=== PATIENT | female | born 1970 | race Hispanic/Latino ===

== ENCOUNTER 2020-05-21 01:22 | Emergency (ER) | payer OTHER ==
[2020-05-21] MEDS ORDERED: CLINDAMYCIN HCL 150 MG CAP ONE (02:11)
[2020-05-21] MEDS ORDERED: KETOROLAC TROMETHAMINE 30MG/ML ONE (02:12)
== END 2020-05-21 02:55 ==
LOC: EDH 01:22
DX: L03.012 Cellulitis of left finger (principal); I10 Essential (primary) hypertension; F41.9 Anxiety disorder, unspecified; F32.9 Major depressive disorder, single episode, unspecified; Z90.49 Acquired absence of other specified parts of digestive tract; Z90.710 Acquired absence of both cervix and uterus
CPT/HCPCS: 96372; 99283; J1885